=== PATIENT | male | born 1990 | race African-American/Black ===

== ENCOUNTER 2017-04-08 20:23 | Emergency (ER) | payer OTHER ==
[~2017-04-08] VITALS: Ht 180.3 cm; Wt 70.8 kg
[2017-04-08 20:37] VITALS: BP 130/85
== END 2017-04-09 01:44 | disposition home or self-care (01) ==
LOC: ED 20:23
DX: S63.283A Dislocation of proximal interphalangeal joint of left middle finger, initial encounter (principal); X58.XXXA Exposure to other specified factors, initial encounter; Y93.89 Activity, other specified; Y99.8 Other external cause status; Y92.89 Other specified places as the place of occurrence of the external cause
CPT/HCPCS: J2001